=== PATIENT | male | born 1970 | race Caucasian/White ===

== ENCOUNTER → 2018-03-25 | Outpatient (CLI) | payer OTHER ==
[~2018-03-25] MED LIST: BACTRIM DS TAB1 EACH PO; CELEBREX400 MG PO; CELEXA10 MG PO; IBUPROFEN 600600 M1 PO; KEFLEX500 MG PO; NORCO 5-325 TA1 EACH PO; TRAMADOL 50 MG50 MG PO; TRAZODONE HCL50 MG PO; XANAX1 MG PO
== END ==
LOC: M.RAD 03-22 11:38
DX: M75.101 Unspecified rotator cuff tear or rupture of right shoulder, not specified as traumatic (principal); Z98.890 Other specified postprocedural states

== ENCOUNTER 2020-04-24 11:11 | Emergency (ER) | payer OTHER ==
[~2020-04-24] VITALS: Ht 185.4 cm; Wt 63.5 kg
[2020-04-24 11:11] VITALS: BP 143/88
[2020-04-24] MEDS ORDERED: ZANAFLEX4 M1 PO (11:16)
[2020-04-24] MEDS ORDERED: TRAMADOL 50 MG50 MG (11:16)
[2020-04-24] MEDS ORDERED: DESYREL150 MG PO (11:17)
[2020-04-24] MEDS ORDERED: TYLENOL325 M1 PO (11:30)
[2020-04-24] MEDS ORDERED: NAPROSYN500 MG PO (11:30)
== END 2020-04-24 11:40 ==
LOC: M.ERS 11:11
DX: S00.03XA Contusion of scalp, initial encounter (principal); S10.83XA Contusion of other specified part of neck, initial encounter; Y08.89XA Assault by other specified means, initial encounter; Y93.89 Activity, other specified; Y92.89 Other specified places as the place of occurrence of the external cause; Y99.8 Other external cause status